=== PATIENT | female | born 1955 | race Caucasian/White ===

== ENCOUNTER 2019-12-08 10:21 | Emergency (ER) | payer OTHER, SELFPAY ==
--- NOTE | 2019-12-08 10:36 | XR_ITS ---
WS: [id number] CHEST XRAY TECHNIQUE: Portable chest. CLINICAL INFORMATION: chest pain COMPARISON: None. FINDINGS: Heart: Normal cardiac silhouette. Lungs: Moderate chronic emphysematous change. No acute pulmonary infiltrates. No focal pneumonia. Bones: Normal visualized bony structures. XR/XR chest 1V portable [id number] IMPRESSION: No acute chest findings
[2019-12-08 10:37] VITALS: BP 136/86; PULSE 81; RESP 18; TEMP 36.7; O2SAT 94; BMI 15.6
--- NOTE | 2019-12-08 10:38 | W.ED.SOB ---
HPI - SOB/Dyspnea General: Chief Complaint: General Medical Stated Complaint: N/V WEAKNESS Time Seen by Provider: 12/08/19 10:25 Source: patient Mode of arrival: wheelchair Limitations: no limitations History of Present Illness: HPI Narrative: Patient is a 64-year-old female here for multiple medical complaints. She tells me she has been having shortness of breath over the past 5 days. Patient does have a history of COPD. She continues to be a on and off smoker. Patient has albuterol and fluticasone/salmeterol inhaler she uses daily. She has noticed she becomes short of breath with any form of exertion. She has not had any prolonged periods of inactivity, no hormonal therapies, no previous history of DVT/PEs. She has no known cardiac history. Denies swelling to her lower extremities. No PND. she is also complaining of some abdominal pain, nausea, vomiting over the past 2 days. She does not complain of hematemesis, hematochezia, melanotic stools. She describes her pain as diffuse and crampy-like. She has not been running fevers. She is urinating normally. MD elicited complaint: shortness of breath Pertinent past history: COPD Onset (ago): day(s) Timing: constant Exacerbating factors: exertion Relieving factors: rest Associated symptoms: Reports abdominal pain, nausea and vomiting; Deny chest congestion, chest pain, fever(s), hemoptysis, lightheadedness, palpitations or syncope Review of Systems Const: Denies: fever(s), chills, body aches, fatigue or malaise Eyes: Denies: change in vision, blurry vision, photophobia, floaters or seeing flashes ENMT: Denies: throat pain, enlarged tonsils or odynophagia Card: Reports: dyspnea on exertion; Denies: chest pain, palpitations, irregular heart rhythm, edema, swelling of feet/ankles, lightheadedness, syncope, pre-syncope or leg pain with exertion Resp: Reports: dyspnea; Denies: productive cough, non-productive cough, wheezing, pain on inspiration, change in phlegm color, hemoptysis or chest congestion GI: Reports: abdominal pain, nausea, vomiting, diarrhea and GI cramping; Denies: hematemesis, coffee ground emesis, dysphagia, heartburn, early satiety, constipation, pain on defecation, hematochezia, melena, mucus in stool, white/light colored stool or steatorrhea : Denies: flank pain, difficulty voiding, dysuria, urinary frequency, urinary urgency, urinary hesitancy or urinary incontinence Musc: Denies: neck pain or back pain Skin/Breast: Denies: rash Neuro: Denies: headache(s), numbness in extremities, weakness in extremities or sensory changes PFSH ED PFSH: Social History Smoking and tobacco status: current some day smoker Physical Exam Const: COMMON NORMALS: no acute distress, average body habitus, patient oriented x3, no limitations, healthy appearing, alert and well nourished ORIENTATION/CONSCIOUSNESS: Yes oriented to person, Yes oriented to place and Yes oriented to time HENMT: COMMON NORMALS: normocephalic, atraumatic and EAC's normal HEAD & SCALP: normocephalic and atraumatic EXTERNAL AUDITORY CANAL: EAC's normal Neck/C-Spine: COMMON NORMALS: full ROM, no lymphadenopathy and no meningeal signs Resp: COMMON NORMALS: normal respiratory effort and clear to auscultation bilaterally AUSCULTATION: clear to auscultation bilaterally Cardio: COMMON NORMALS: regular rate and regular rhythm RATE: regular rate RHYTHM: regular rhythm GI: COMMON NORMALS: Normal to inspection, nondistended, normoactive bowel sounds present, Soft to palpation, No hepatosplenomegaly present and no masses PALPATION: Yes Soft to palpation, Yes Tenderness to palpation present (GI) (mild diffusely ) and Yes No hepatosplenomegaly present : COMMON NORMALS: Yes no CVA tenderness BLADDER/KIDNEY EXAM: Yes no CVA tenderness Back/Pelvis: COMMON NORMALS: no CVA tenderness Extremity: COMMON NORMALS: normal to inspection Neuro: CHITRA COMA SCALE: document GCS findings Chitra coma scale eye opening: Spontaneous Chitra coma scale verbal response: Orientated Cameron coma scale motor response: Obey commands Chitra coma scale total score: 15 COMMON NORMALS: patient oriented x3, moves all extremities, no focal motor deficits, no sensory deficits noted and gait normal SENSORIUM/ORIENTATION: Yes alert, Yes oriented to person, Yes oriented to place and Yes oriented to time MENINGEAL SIGNS: Yes no meningeal signs Skin: COMMON NORMALS: no rashes or lesions noted GENERAL SKIN EXAM: no rashes or lesions noted Course Vital Signs: Vital signs: Vital Signs Temperature 98.0 F 12/08/19 10:37 Pulse Rate 81 12/08/19 10:37 Respiratory Rate 18 12/08/19 10:37 Blood Pressure 136/86 12/08/19 10:37 Pulse Oximetry 93 12/08/19 11:32 MDM - SOB/Dyspnea MDM Narrative: Medical decision making narrative: Patient's labs including CBC, CMP, lipase, UA, d-dimer, troponin are all non-concerning at this time. Patient's EKG shows no ischemic changes. Chest x-ray shows emphysema but no acute infiltrates. Patient's vitals are completely stable. At this point I feel patient is stable for discharge with recommendations to follow-up with her PCP early next week. We will treat her for a COPD exacerbation. She may have gastroenteritis as well given her N/V/D. Will rx zofran as well. Of note patient does tell me upon reexamination she recently is living with her brother who has a wooden stove and a keith house and thinks maybe this has triggered her COPD to flare. Lab Data: Labs: Lab Results 12/08/19 12/08/19 12/08/19 Range/Units 10:35 10:45 10:45 WBC 7.5 (4.0-10.0) 10^3/ uL RBC 5.07 (4.1-5.3) 10^6/u L Hgb 15.4 H (11.5-15.3) g/dL Hct 47.3 H (37.0-47.0) % MCV 93.3 (81-99) fL MCH 30.4 (28.0-34.0) pg MCHC 32.6 (30.0-36.0) g/dL RDW 13.4 (12.1-15.1) % Plt Count 180 (130-400) 10^3/c mm MPV 11.7 H (7.4-10.4) fL Neut % (Auto) 75.7 % Lymph % (Auto) 17.4 % [place] % (Auto) 4.9 % Eos % (Auto) 1.2 % Baso % (Auto) 0.5 % Neut # (Auto) 5.7 (1.8-7.7) 10^3/u L Lymph # (Auto) 1.3 (0.8-4.8) 10^3/u L [place] # (Auto) 0.4 (0.2-0.9) 10^3/u L Eos # (Auto) 0.1 (0.0-0.8) 10^3/u L Baso # (Auto) 0.0 (0.0-0.1) 10^3/u L Nucleated RBC % (a uto) 0 % Nucleated RBCs # 0.0 /100WBC D-Dimer (0-0.59) ug/mIFE U Sodium 141 (136-145) mmol/L Potassium 4.5 (3.5-5.1) mmol/L Chloride 104 (98-107) mmol/L Carbon Dioxide 26 (22-29) mmol/L Anion Gap 15.5 (5-19) BUN 8 (8-23) mg/dL Creatinine 0.6 (0.5-0.9) mg/dL GFR Calculation 101.3 (90-130) mL/min Glucose 109 (65-115) mg/dL Calculated Osmolal ity 288 (285-295) mOsm/k g Calcium 10.4 (8.5-10.5) mg/dL Total Bilirubin 0.6 (0.15-1.2) mg/dL AST 23 (0-32) U/L ALT 25 (0-33) U/L Alkaline Phosphata se 83 (35-105) IU/L Troponin T Baselin e (0-10) ng/mL Total Protein 7.4 (6.6-8.7) g/dL Albumin 4.7 (3.5-5.2) g/dL Globulin 2.7 (1.3-4.6) g/dL Lipase 23 (13-60) U/L Urine Color Yellow (Yellow) Urine Appearance Clear (CLEAR) Urine pH 6 (5-7) Ur Specific Gravit y 1.010 (1.005-1.030) Urine Protein Neg (Negative) Urine Glucose (UA) Norm (Normal) Urine Ketones 1+ H (Negative) Urine Blood Neg (Negative) Urine Nitrate Negative (Negative) Urine Bilirubin Neg (NEGATIVE) Urine Urobilinogen Norm (Negative) mg/dL Ur Leukocyte Vaishali ase Negative (Negative) 12/08/19 12/08/19 Range/Units 10:45 10:45 WBC (4.0-10.0) 10^3/ uL RBC (4.1-5.3) 10^6/u L Hgb (11.5-15.3) g/dL Hct (37.0-47.0) % MCV (81-99) fL MCH (28.0-34.0) pg MCHC (30.0-36.0) g/dL RDW (12.1-15.1) % Plt Count (130-400) 10^3/c mm MPV (7.4-10.4) fL Neut % (Auto) % Lymph % (Auto) % [place] % (Auto) % Eos % (Auto) % Baso % (Auto) % Neut # (Auto) (1.8-7.7) 10^3/u L Lymph # (Auto) (0.8-4.8) 10^3/u L [place] # (Auto) (0.2-0.9) 10^3/u L Eos # (Auto) (0.0-0.8) 10^3/u L Baso # (Auto) (0.0-0.1) 10^3/u L Nucleated RBC % (a uto) % Nucleated RBCs # /100WBC D-Dimer 0.28 (0-0.59) ug/mIFE U Sodium (136-145) mmol/L Potassium (3.5-5.1) mmol/L Chloride (98-107) mmol/L Carbon Dioxide (22-29) mmol/L Anion Gap (5-19) BUN (8-23) mg/dL Creatinine (0.5-0.9) mg/dL GFR Calculation (90-130) mL/min Glucose (65-115) mg/dL Calculated Osmolal ity (285-295) mOsm/k g Calcium (8.5-10.5) mg/dL Total Bilirubin (0.15-1.2) mg/dL AST (0-32) U/L ALT (0-33) U/L Alkaline Phosphata se (35-105) IU/L Troponin T Baselin e 9 (0-10) ng/mL Total Protein (6.6-8.7) g/dL Albumin (3.5-5.2) g/dL Globulin (1.3-4.6) g/dL Lipase (13-60) U/L Urine Color (Yellow) Urine Appearance (CLEAR) Urine pH (5-7) Ur Specific Gravit y (1.005-1.030) Urine Protein (Negative) Urine Glucose (UA) (Normal) Urine Ketones (Negative) Urine Blood (Negative) Urine Nitrate (Negative) Urine Bilirubin (NEGATIVE) Urine Urobilinogen (Negative) mg/dL Ur Leukocyte Vaishali ase (Negative) Imaging Data^: CXR: Radiologist's impression: [address] [address] XRay Report Signed Patient: Rosy Sena Unit #: [id number] : 1955 Age/Sex: 64 / F ADM Date: 12/08/19 Loc: ER Room/Bed: Attending Dr: Ordering Provider/Ordering MD: Jocelyn Alcocer Date of Service: 12/08/19 Procedure(s): XR chest 1V portable [id number] Accession Number(s): [id number] Report Number: [id number] WS: [id number] CHEST XRAY TECHNIQUE: Portable chest. CLINICAL INFORMATION: chest pain COMPARISON: None. FINDINGS: Heart: Normal cardiac silhouette. Lungs: Moderate chronic emphysematous change. No acute pulmonary infiltrates. No focal pneumonia. Bones: Normal visualized bony structures. XR/XR chest 1V portable [id number] IMPRESSION: No acute chest findings Dictated By: Moe Butler MD Signed By: Moe Butler MD Signed Date/Time: 12/08/191124 DD/ 24 EKG Data^: EKG 1: EKG Interpretation Date: 12/08/19 EKG interpretation time: 11:04 Interpretation: Sinus rhythm Rate [address] elevation or depression noted Discharge Plan Discharge Patient Disposition: Home, Self-Care Clinical Impression: COPD exacerbation, Gastroenteritis Condition: Stable Prescriptions: New ciprofloxacin HCl 500 mg tablet 500 mg PO BID 7 Days Qty: 14 RF: 0 Medrol (Richi) 4 mg tablets,dose pack See Rx Instructions .ROUTE .COMPLEX Qty: 21 RF: 0 Zofran 4 mg tablet 4 mg PO Q6H PRN (Reason: nausea and vomiting) Qty: 14 RF: 0 Discharge Diet: Advance as tolerated Discharge Activity: Increase activity as tolerated Patient Instructions: COPD - Emphysema, Chronic Bronchitis (ED), Acute Nausea and Vomiting (ED) Activity Restrictions/Additional Instructions: Please follow up with primary care early next week for re-evaluation. Return to ED for worsening shortness of breath, fevers, chest pains, passing out episodes, blood in vomit or stools, or any other concerns you may have. Coding Level of Care Code ED Meter Setter for Chg Fwd Exam Comprehensive
[2019-12-08 10:52] LABS: Basophils % 0.5 %; Eosinophils # 0.1 10^3/uL (0.0-0.8); Eosinophils % 1.2 %; Hematocrit 47.3 % (37.0-47.0); Hemoglobin 15.4 g/dL (11.5-15.3); Lymphocytes # 1.3 10^3/uL (0.8-4.8); Lymphocytes % 17.4 %; Mean Corpuscular HGB Conc 32.6 g/dL (30.0-36.0); Mean Corpuscular Hemoglobin 30.4 pg (28.0-34.0); Mean Corpuscular Volume 93.3 fL (81-99); Mean Platelet Volume 11.7 fL (7.4-10.4); Monocytes # 0.4 10^3/uL (0.2-0.9); Monocytes % 4.9 %; Neutrophils # 5.7 10^3/uL (1.8-7.7); Neutrophils % 75.7 %; Nucleated Red Blood Cells % 0 %; Platelet Count 180 10^3/cmm (130-400); Red Blood Count 5.07 10^6/uL (4.1-5.3); Red Cell Distribution Width 13.4 % (12.1-15.1); White Blood Count 7.5 10^3/uL (4.0-10.0)
[2019-12-08 11:06] LABS: Alanine Aminotransferase 25 U/L (0-33); Albumin Level 4.7 g/dL (3.5-5.2); Alkaline Phosphatase 83 IU/L (35-105); Anion Gap 15.5 (5-19); Aspartate Amino Transferase 23 U/L (0-32); Blood Urea Nitrogen 8 mg/dL (8-23); Calcium 10.4 mg/dL (8.5-10.5); Carbon Dioxide 26 mmol/L (22-29); Chloride 104 mmol/L (98-107); Globulin 2.7 g/dL (1.3-4.6); Glomerular Filtration Rate 101.3 mL/min (90-130); Glucose 109 mg/dL (65-115); Lipase 23 U/L (13-60); Osmolality Calculated 288 mOsm/kg (285-295); Potassium 4.5 mmol/L (3.5-5.1); Sodium 141 mmol/L (136-145); Total Bilirubin 0.6 mg/dL (0.15-1.2); Total Protein 7.4 g/dL (6.6-8.7)
[2019-12-08 11:10] LABS: Troponin(5th) Baseline 9 ng/mL (0-10)
[2019-12-08 11:22] LABS: Add Urine Microscopic? NO
[2019-12-08 11:32] VITALS: O2SAT 93
[2019-12-08 11:32] LABS: Bilirubin Urine Neg (NEGATIVE); Blood Urine Neg (Negative); Glucose Urine UA Norm (Normal); Ketones Urine 1+ (Negative); Leukocyte Esterase Urine Negative (Negative); Nitrate Urine Negative (Negative); Protein Urine Neg (Negative); Urine Appearance Clear (CLEAR); Urine Color Yellow (Yellow); Urobilinogen Urine Norm (Negative); pH Urine 6 (5-7)
[2019-12-08 11:38] LABS: D Dimer 0.28 ug/mIFEU (0-0.59)
[2019-12-08] MEDS: ondansetron 2 mg/ML SDV 2 mL 4 MG IM (12:19)
[2019-12-08 12:20] VITALS: BP 130/74; PULSE 78; RESP 20
[2019-12-08 12:23] VITALS: BP 130/74; PULSE 81; RESP 22; O2SAT 93
--- NOTE | 2019-12-08 12:36 | ECG_ITS ---
Measurements Intervals [place] Rate: 66 P: 81 CT: 142 QRS: 83 QRSD: 77 T: 74 QT: 390 QTc: 410 SINUS RHYTHM Compared to ECG 12/23/2018 16:09:12 No significant changes Electronically Signed On 12-08-2019 15:46:09 CDT by Arun Jacobson M.D. [email or web address]
== END 2019-12-08 12:23 | disposition home or self-care (01) ==
PROVIDERS: Emergency Provider Physician Assistant
DX: J44.1 Chronic obstructive pulmonary disease with (acute) exacerbation (principal); K52.9 Noninfective gastroenteritis and colitis, unspecified; F17.210 Nicotine dependence, cigarettes, uncomplicated
CPT/HCPCS: 12345; 36415; 71045; 80053; 81003; 83690; 84484; 85025; 85378; 93005; 96372; 99282; 99283; A9270; J2405

== ENCOUNTER 2020-02-03 11:49 | Outpatient (CLI) | payer OTHER, SELFPAY | END 2020-02-03 11:50 | disposition home or self-care (01) | LOC: RT 11:51 | PROVIDERS: Visit Provider Dermatology | DX: J44.9 Chronic obstructive pulmonary disease, unspecified (principal) | CPT/HCPCS: 94060; J7611 ==